=== PATIENT | male | born 1970 | race Caucasian/White ===

== ENCOUNTER → 2019-03-15 | Outpatient (CLI) | payer BC ==
--- NOTE | 2019-03-15 16:45 | PCVCIMAG ---
APPROVED REPORT Patient Location: Echo lab- [facility] Room #: 2 Stress Nurse: Alisson Enamorado RN INDICATIONS: Hypertension, Dyslipidemia, Family history of CAD The patient exercised according to the SHAUNNA protocol for 10:00 mins; achieving a work level of 13.4 METS. The resting heart rate of 76 bpm gisela to a maximum heart rate of 184 bpm. This value represents 106% of the maximal, age-predicted heart rate. The resting blood pressure of 164/92 mmHg, gisela to a maximum blood pressure of 214/90 mmHg. The exercise test was stopped due to fatigue. Resting EKG: Sinus rhythm normal tracing Stress EKG: No dysrhythmias. No ST segment shifts diagnostic of myocardial ischemia. Conclusion 1. Maximal treadmill exercise study negative for exercise-induced ischemia. 2. No subjective signs of ischemia. No diagnostic ischemic electrocardiographic changes. Hypertensive response to exercise 3. The study was associated with good exercise capacity (13.4 METS). Low Meyer exercise score.
--- NOTE | 2019-03-15 16:50 | PCVCIMAG ---
APPROVED REPORT Study performed: 03/15/2019 15:01:25 EXAM: Comprehensive 2D, Doppler, and color-flow Echocardiogram Patient Location: Echo lab Room #: 2Status: routine BSA: 1.89 HR: 61 bpmBP: 164/92 mmHg Rhythm: NSR Other Information Study Quality: Good Risk Factors: Cardiac Risk Factors: HTN, Hyperlipidemia Indications Abnormal ECG Hypertension/HDD 2D Dimensions IVSd: 10.17 (7-11mm)LVOT Diam: 21.29 (18-24mm) LVDd: 52.57 mm PWd: 8.45 (7-11mm)Ascending Ao: 38.25 (22-36mm) LVDs: 33.66 (25-40mm) Left Atrium: 36.40 (27-40mm) Aortic Root: 33.33 mm LV Single Plane 4CH: 65.05 % LV Single Plane 2CH: 67.98 % Biplane EF: 67.0 % Volumes Left Atrial Volume (Systole) Single Plane 4CH: 52.55 mLSingle Plane 2CH: 42.81 mL Biplane LA Volume: 48.00 mLLA ESV Index: 26.00 mL/m2 Aortic Valve AoV Peak Mat.: 1.64 m/s AO Peak Gr.: 10.73 mmHgLVOT Max P.09 mmHg LVOT Max V: 0.88 m/s ZULY Vmax: 1.91 cm2 Mitral Valve E/A Ratio: 1.2 MV Decel. Time: 253.99 ms MV E Max Mat.: 0.82 m/s MV A Mat.: 0.66 m/s IVRT: 110.73 ms TDI E/Lateral E': 6.31E/Medial E': 8.20 Medial E' Mat.: 0.10 m/s Lateral E' Mat.: 0.13 m/s Pulmonary Valve PV Peak Mat.: 1.21 m/sPV Peak Gr.: 5.82 mmHg Pulmonary Vein P Vein S: 0.56 m/sP Vein A: 0.40 m/s P Vein D: 0.54 m/sP Vein A Dur.: 100.3 msec P Vein S/D Ratio: 1.04 Tricuspid Valve TR Peak Mat.: 1.91 m/s TR Peak Gr.: 14.52 mmHg TV Vmax: 0.63 m/sPA Pressure: 22.00 mmHg Left Ventricle The left ventricle is normal size. There is normal LV segmental wall motion. There is normal left ventricular wall thickness. Left ventricular systolic function is normal. The left ventricular ejection fraction is within the normal range. LVEF is 65-70%. The left ventricular diastolic function is normal. Right Ventricle The right ventricle is normal size. The right ventricular systolic function is normal. Atria The left atrium size is normal. The right atrium size is normal. Aortic Valve Aortic valve is trileaflet. No aortic regurgitation is present. There is no aortic valvular stenosis. Mitral Valve The mitral valve is normal in structure. There is no mitral valve regurgitation noted. No evidence of mitral valve stenosis. Tricuspid Valve The tricuspid valve is normal in structure. Trace tricuspid regurgitation with a PA pressure of 22 mmHg. Pulmonic Valve The pulmonary valve is normal in structure. There is no pulmonic valvular regurgitation. Great Vessels Aortic root is normal in size. The Sinus of Valsalva is 4.0cm. The proximal ascending aorta is 3.9 cm with the arch2.1 cm and the descending aorta 2.0cm The ascending aorta is at the upper limits of normal (3.9cm). IVC is normal in size and collapses >50% with inspiration. Pericardium There is no pericardial effusion. There is no pleural effusion. <Conclusion> Left ventricular systolic function is normal. There is normal LV segmental wall motion. LVEF is 65-70%. Normal diastolic function Aortic valve is trileaflet. No aortic regurgitation or stenosis The mitral valve is normal in structure. No mitral valve regurgitation. Trace tricuspid regurgitation with a pulmonary artery pressure of 22 mmHg. The ascending aorta is at the upper limits of normal (3.9cm). There is no pericardial effusion.
== END | disposition home or self-care (01) ==
LOC: PCVCINTER 14:53
PROVIDERS: ATTEND Internal Medicine
DX: I10 Essential (primary) hypertension (principal); E78.5 Hyperlipidemia, unspecified; Z82.49 Family history of ischemic heart disease and other diseases of the circulatory system
CPT/HCPCS: 93017; 93306